=== PATIENT | male | born 1975 | race Caucasian/White ===

== ENCOUNTER 2018-07-25 16:37 | Emergency (ER) | payer MEDICAID ==
[~2018-07-25] VITALS: Ht 198.1 cm; Wt 127.3 kg
[2018-07-25 16:40] VITALS: BP 172/96
[2018-07-25] MEDS ORDERED: LIDOcaine 1% w/epiNEPHrine 1:200,000 30ml vial IM ONE (18:05)
[2018-07-25] MEDS ORDERED: TETanus/Pertussis (Acell)/Diphther VAC/PF (Tdap-Adult) 0.5ml syringe IM ONE (18:05)
[2018-07-25] MEDS ORDERED: SULF1TAB49 PO (19:00)
== END 2018-07-25 19:07 | disposition home or self-care (01) ==
LOC: ER 16:38
DX: L02.01 Cutaneous abscess of face (principal); Z79.899 Other long term (current) drug therapy
CPT/HCPCS: 10060; 90471; 90715; 99283; J3490